=== PATIENT | female | born 2000 | race Two or more races ===

== ENCOUNTER 2020-08-30 08:55 | Outpatient (REF) | payer OTHER, SELFPAY ==
[2020-08-30 14:02] LABS: CT PCR NOT DETECTED (Not Detect.); NG PCR NOT DETECTED (Not Detect.)
[2020-08-31 13:33] LABS: BV Int Neg Control Negative (Negative); BV Int Pos Control Positive (Positive)
== END 2020-08-30 08:56 | disposition home or self-care (01) ==
LOC: HO.LAB 08:55
PROVIDERS: Visit Provider Advanced Practice Midwife
DX: Z34.00 Encounter for supervision of normal first pregnancy, unspecified trimester (principal)
CPT/HCPCS: 87480; 87491; 87510; 87591; 87660; 88142; 90686

== ENCOUNTER 2020-09-02 10:37 | Outpatient (REF) | payer OTHER, SELFPAY ==
--- NOTE | 2020-09-02 10:41 | US_ITS ---
EXAMINATION: OBSTETRICAL ULTRASOUND, FIRST TRIMESTER HISTORY: 20-year-old at 13.6 weeks of gestation NT screening COMPARISON: 07/25/2020 TECHNIQUE: Real time transabdominal imaging with color and M-mode Doppler. FINDINGS: A single, live IUP CRL of 82.5 mm c/w 14.2wks is noted. Heart Rate: 170 beats per minute. Normal yolk sac seen. NT was 1.2.mm. NB Present The embryo appears sonographically wnl for this GA. Unable to visualize due to bowel. GESTATIONAL AGE: 1. Established GA: 13.6 wks 2. GA from [facility]: 14.2 wks ESTIMATED DATE OF DELIVERY: 1. Established CRISTI: 03/04/2021 2. CRISTI from [facility]: 03/01/2021 US/US OB 1T nuc measure IMPRESSION: 1. Single active fetus 2. Size equals dates 3. NT of 1.2 mm MFM Consultation: I reviewed the ultrasound findings along with significance of NT measurement. The NT of less than 3mm is generally reassuring. However, the sensitivity for T21 detection is only 60%. I reviewed the availability of serum aneuploidy screening which includes cell-free DNA and placental protein based tests. I discussed the sensitivity, false-positive rate, and other limitations associated with each test. I also reviewed the availability of invasive diagnostic tests that are associated small but definite risk of miscarriage. We also reviewed the differences between screening tests and diagnostic tests. After our discussion, she opted for the First trimester screening that is based on cell-free DNA or non-invasive testing (NIPT). The result will be faxed to your office in approximately 7 days. A follow up at 18 weeks for survey has been scheduled. Thank you very much for this referral. Majority of this visit was spent reviewing her care and counselling her in face to face time: Time spent 20 min.
== END 2020-09-02 10:38 | disposition home or self-care (01) ==
LOC: HO.US 10:37
PROVIDERS: Visit Provider Advanced Practice Midwife
DX: Z34.00 Encounter for supervision of normal first pregnancy, unspecified trimester (principal)
CPT/HCPCS: 76813

== ENCOUNTER → 2020-09-27 08:08 | Outpatient (BNVA) | payer OTHER, SELFPAY | PROVIDERS: Visit Provider Advanced Practice Midwife | DX: Z76.89 Persons encountering health services in other specified circumstances (principal) ==

== ENCOUNTER → 2020-10-13 10:43 | Outpatient (BNVA) | payer OTHER, SELFPAY | PROVIDERS: Visit Provider Advanced Practice Midwife | DX: B37.3 Candidiasis of vulva and vagina (principal) | CPT/HCPCS: Q3014 ==

== ENCOUNTER 2020-10-14 11:17 | Outpatient (REF) | payer OTHER, SELFPAY ==
--- NOTE | 2020-10-14 11:22 | US_ITS ---
EXAMINATION: US OBSTETRICAL CLINICAL INFORMATION: 20-year-old at 19.6 weeks of gestation Suspected anomaly COMPARISON: 09/02/2020 TECHNIQUE: Real-time transabdominal ultrasound was performed using C1-5 megahertz transducer. FINDINGS: A single, active, fetus is seen in vertex presentation. The placenta is posterior without previa, and the amniotic fluid volume is wnl. MEASUREMENTS: 1. Biparietal Diameter: 4.8 cm; 20.5 wks 2. Occipital Frontal Diameter: 5.9 cm 3. Head Circumference: 17.8 cm; 20.2 wks 4. Abdominal Circumference: 14.4 cm; 19.5 wks 5. Femur Length: 3.5 cm; 21.2 wks 6. Humerus Length: 3.4 cm; 21.4 wks 7. Tibia Length: 3.0 cm; 21.0 wks 8. Ulna Length: 3.2 cm; 32.0 wks 9. Lateral ventricle: 0.72 cm 10. Cerebellum: 2.1 cm; the 1.2 wks 11. Cisterna Magna: 0.73 cm 12. Nuchal Fold: 4.03 mm 13. Heart Rate: 155 beats per minute Rt ovary: normal Lt ovary: normal Cervical length 3.9 cm on T/A. GESTATIONAL AGE: 1. Established GA: 19.6 wks 2. GA from [facility]: 20.4 wks ESTIMATED DATE OF DELIVERY: 1. Established CRISTI: 03/04/2021 2. CRISTI from [facility]: 02/27/2021 ANATOMY: The visualized anatomy includes but not limited to: 1. Cranium: Normal 2. Intracranial anatomy: cavum septum pellucidi, lateral ventricles, choroid plexus, cerebellum, posterior fossa, third and fourth ventricles. 3. face: orbits, lip/palate, profile, nasal bone 4. Heart: four-chamber view of the heart, ventricular septum, foramen ovale, pulmonary vein, left and right outflow tracts, three-vessel view, 3 vessel trachea view, aortic and ductal arches, situs.. 5. Diaphragm: Normal 6. Abdominal wall: Normal 7. Cord Insertion: Normal 8. Spine: Cervical, thoracic, lumbar, sacral. 9. Stomach: Normal size and shape 10. Right Kidney: Normal 11. Left Kidney: Normal 12. 3 vessel cord: Normal 13. Upper extremity: Open hands, fifth digit. 14. Lower extremity: Tibia, fibula, bilateral feet. 15. Bladder: Normal 16. Genitalia: Male, patient aware US/US OB /maternal detail IMPRESSION: 1. Single, living, intrauterine with appropriate biometry. 2. Normal survey DISCUSSION: I reviewed today's ultrasound findings. We discussed the limitations of ultrasound in diagnosing aneuploidy and other congenital abnormalities. I reviewed the differences between screening test and diagnostic test. Amniocentesis was discussed and declined. She was informed that the baseline incidence of congenital abnormalities is approximately 3-5%. Not all these conditions are diagnosable in utero. RECOMMENDATIONS: 1. Follow-up when necessary Thank you for allowing me to participate in her care. Visiting time 25 minutes. Majority of this visit was spent reviewing and discussing her care.
== END 2020-10-14 11:18 | disposition home or self-care (01) ==
LOC: HO.US 11:17
PROVIDERS: Visit Provider Advanced Practice Midwife
DX: O35.9XX0 Maternal care for (suspected) fetal abnormality and damage, unspecified, not applicable or unspecified (principal); Z3A.19 19 weeks gestation of pregnancy
CPT/HCPCS: 76811

== ENCOUNTER → 2020-10-25 10:19 | Outpatient (BNVA) | payer OTHER, SELFPAY | PROVIDERS: Visit Provider Advanced Practice Midwife | DX: Z34.00 Encounter for supervision of normal first pregnancy, unspecified trimester (principal) | CPT/HCPCS: 81003 ==

== ENCOUNTER → 2020-11-22 10:52 | Outpatient (BNVA) | payer OTHER, SELFPAY | PROVIDERS: PCP Pediatrics; Visit Provider Advanced Practice Midwife | DX: Z34.00 Encounter for supervision of normal first pregnancy, unspecified trimester (principal); Z3A.25 25 weeks gestation of pregnancy | CPT/HCPCS: 81003; 99212 ==

== ENCOUNTER 2022-06-10 19:53 | Emergency (ER) | payer MEDICAID, SELFPAY ==
--- NOTE | ~2022-06-10 | XR_ITS ---
EXAMINATION: XR CHEST CLINICAL INFORMATION: Chest discomfort with breathing COMPARISON: Chest x-ray 01/29/2020 TECHNIQUE: Frontal view of the chest was obtained. FINDINGS: The lungs are clear. No airspace consolidation, pleural effusion, or pneumothorax. The cardiomediastinal silhouette is within normal limits. No acute osseous injury. XR/XR chest 1V IMPRESSION: No acute pulmonary process.
[2022-06-10 19:56] VITALS: BP 122/77; PULSE 79; RESP 18; TEMP 37.3; O2SAT 98; BMI 22.0
[2022-06-10 20:18] LABS: COVID-19 Test Negative (Negative); IDNOW Serial# 16C4AD1C
== END 2022-06-10 23:36 | disposition left against medical advice (07) ==
LOC: HO.ED 22:38
PROVIDERS: Emergency Medicine; Emergency Provider Emergency Medicine
DX: R07.89 Other chest pain (principal); R50.9 Fever, unspecified; Z20.822 Contact with and (suspected) exposure to COVID-19
CPT/HCPCS: 71045; 87635; 99281; 99283

== ENCOUNTER 2022-07-18 19:30 | Emergency (ER) | payer MEDICAID, SELFPAY ==
--- NOTE | ~2022-07-18 | US_ITS ---
EXAMINATION: US OBSTETRICAL ULTRASOUND CLINICAL INFORMATION: , vaginal bleeding COMPARISON: None from this . LMP: 06/17/2022. Gestational age by maternal dates is 4 weeks 4 days. Estimated date of delivery by maternal dates is 03/24/2023. TECHNIQUE: Sonographic evaluation of the pelvis was performed transabdominally and transvaginally. FINDINGS: The uterus measures 8.3 x 4.2 x 5.6 cm. Endometrial stripe measures 0.8 cm in thickness. No intrauterine gestational sac is seen. The right ovary measures 3.5 x 1.8 x 2.2 cm and appears unremarkable. The left ovary measures 3.0 x 1.6 x 2.2 cm and appears unremarkable, only seen on transabdominal imaging. Small amount of nonspecific free fluid is noted, which may be physiologic. US/US OB pelvic and transvaginal IMPRESSION: No intrauterine is identified at this time. Correlation with beta hCG levels is recommended, as nonvisualization of a gestational sac could be due to an early stage of . Alternatively, lack of an intrauterine gestational sac may also be seen with missed or ectopic , although no adnexal mass is seen to strongly suggest ectopic . Short-term sonographic follow-up and serial beta hCG levels are recommended to assess for development of an intrauterine gestational sac.
[2022-07-18 19:50] VITALS: BP 126/72; PULSE 100; RESP 18; TEMP 37; O2SAT 100; BMI 22.0
[2022-07-18 20:17] LABS: UPreg QC Valid YES; Urine Pregnancy NEGATIVE (NEGATIVE)
[2022-07-18 20:18] LABS: Appearance Urine Clear; Color Urine Yellow; Glucose Urine UA Negative (Negative); Leukocyte Esterase Urine Negative (Negative); Nitrite Urine Negative (Negative); Specific Gravity - Urine <= 1.005 (1.005-1.025); Urine Blood Moderate (2+) (Negative); Urine Ketones Negative (Negative); Urine Protein Negative (Neg-Trace)
[2022-07-18 20:26] LABS: Bacteria Urine None Seen (None Seen); Hyaline Casts Urine 0-2 /LPF (0-2); RBC Urine 0-2 /HPF (0-2); Squamous Epithelial Cell Urine 0-2 /HPF (0-2); WBC Urine 0-5 /HPF (0-5)
[2022-07-18 23:05] LABS: MANUAL DIFF FLAG NO
[2022-07-18 23:06] LABS: Basophils Absolute Auto 0.1 X10*3/uL (0.0-0.2); Basophils Percent Auto 0.8 % (0-2); Eosinophils Absolute Auto 0.1 X10*3/uL (0.0-0.4); Eosinophils Percent Auto 1.3 % (0-4); Hematocrit 43.9 % (37.0-47.0); Hemoglobin 14.7 g/dl (12.0-16.0); Imm Gran Abs Auto 0.04 X10*3/uL (0.00-0.03); Imm Gran Pct Auto 0.4 % (0.0-0.4); Lymphocytes Absolute Auto 2.9 X10*3/uL (1.2-4.9); Lymphocytes Percent Auto 27.4 % (20-40); Mean Corpuscular HGB Conc 33.5 g/dl (31.0-35.0); Mean Corpuscular Hemoglobin 30.6 pg (27.0-33.0); Mean Corpuscular Volume 91.3 fL (80.0-98.0); Mean Platelet Volume 9.5 fL (9.4-12.3); Monocytes Percent Auto 9.2 % (2-11); Neutrophils Absolute Auto 6.4 x10*3/uL (2.0-8.3); Neutrophils Percent Auto 60.9 % (45-73); Platelet Count 335 X10*3/uL (160-400); Red Blood Count 4.81 X10*6/uL (4.20-5.50); Red Cell Distribution Width 12.3 % (11.0-16.0); White Blood Count 10.5 X10*3/uL (4.8-10.8)
[2022-07-18 23:48] LABS: Alanine Aminotransferase 11 U/L (0-31); Albumin Level 4.6 g/dL (3.5-5.0); Alkaline Phosphatase 63 U/L (39-117); Anion Gap 16 (12-20); Aspartate Amino Transferase 14 U/L (5-31); Bilirubin Total 0.4 mg/dL (0.0-1.0); Blood Urea Nitrogen 11 mg/dL (9-16); Calcium 9.7 mg/dL (8.4-10.2); Carbon Dioxide 27 mmol/L (22-29); Chloride 101 mmol/L (96-108); Creatinine Clr Calc Pharmacy 66.8; Estimated Glomerular Filt Rate 60; Glucose Random 82 mg/dL (60-115); Lipase 57 U/L (8-78); Sodium 140 mmol/L (135-145); Total Protein 8.1 g/dL (6.5-8.0)
[2022-07-18 23:55] LABS: HCG Quantitative 28 mIU/mL
--- NOTE | 2022-07-19 00:19 | ED_ITS ---
HPI - Female Genitourinary General Chief complaint: Vaginal Bleeding Stated complaint: vaginal bleeding Time Seen by Provider: 07/18/22 20:40 Source: patient Mode of arrival: ambulatory Limitations: no limitations History of Present Illness HPI Narrative: This is a 22-year-old female A0 last menstrual period 06/17/22 presenting to the emergency department with vaginal spotting since this morning. Patient rep orts that earlier today she noted that she had bright red blood in her panty liner, she reports she has only gone through one panty liner today reports when she pees and wipes blood is present, she tells me the blood is bright red, without clots. Tells me this never happened in her last . She tells me that she had a positive test at home, multiple times first + test was 2 weeks ago. And she thinks that she is around 4 weeks . Currently not receiving care, called [facility] and is waiting for apt per patient. Reports intermittent cramping to lower abdomen not present at this time. She denies nausea, vomiting, fevers, chills, diarrhea, headache, dizziness, vision changes, chest pain, shortness of breath. MD elicited complaint: other (Vaginal spotting ) Related Data Previous Rx's Medication Instructions Recorded miconazole nitrate 2 % vaginal 1 appful vaginal BEDTIME 7 days 10/13/20 cream (Monistat 7) #45 grams vitamin with calcium 1 tab PO DAILY #30 tabs 10/25/20 no.72-iron 27 mg-folic acid 1 mg tablet Allergies Allergy/AdvReac Type Severity Reaction Status Date / Time milk Allergy Gastrointestinal Verified 07/18/22 19:54 Upset Review of Systems Review of Systems: Constitutional : No Weight loss, No Fever, No Chills, No Fatigue, No Malaise ENT/Mouth : No sore throat, No Rhinorrhea Eyes: No Eye Pain, No Swelling, No Redness Cardiovascular : No Chest Pain, No SOB, No Dyspnea on Exertion, No Orthopnea, No Edema, No Palpitations Respiratory : No Cough, No Sputum, No Wheezing Gastrointestinal : No Nausea, No Vomiting, No Diarrhea, No Constipation, + abdominal cramping, No abdominal pain, No Hematochezia, No Melena Genitourinary : No Dysuria, No Urinary Frequency, No Hematuria, + Vaginal spotting Musculoskeletal : No joint pain, No Myalgias, No Joint Swelling Skin : No Skin Lesions, No rash Neuro : No Weakness, No Numbness, No Dizziness, No Headache Psych : No Anxiety/Panic, No Depression All other systems reviewed and are negative Yes all other systems are reviewed and are negative [facility] Past Medical History Attestation statement: The following information was validated with the patient. Source: old records reviewed and nursing notes reviewed Medical History Depression Surgical History No history of previous surgery Family History Family History Maternal Grandmother Diabetes mellitus Father Diabetes mellitus HTN (hypertension) Paternal Grandmother Breast cancer Social History Social History Alcohol intake: never Advance Directives: No Advance Directives Information Provided: Yes Gender identity: Female Physical Exam Vital Signs: Vital Signs: Last Vital Signs Temp 98.6 F 07/18/22 19:50 Pulse 54 07/19/22 02:00 Resp 18 07/18/22 19:50 BP 107/46 L 07/19/22 02:00 Pulse Ox 98 07/19/22 02:00 O2 Del Method 07/19/22 02:00 BMI result Body Mass Index 22.0 Vital signs stable, patient hemodynamically stable Appearance: Alert.? Oriented X3.? No acute distress.? Head: Normocephalic, atraumatic, no step-offs or deformities Eyes: Pupils equal, round and reactive to light.? Neck: Normal inspection.? Neck supple.? CVS: Normal heart rate and rhythm.? Pulses normal.? Respiratory: No respiratory distress.? Breath sounds normal.? Abdomen: Soft and nontender.?Normal BS . Atraumatic abdomen Skin: Skin warm and dry.? Normal skin color.? Normal skin turgor.? Extremities: No lower extremity edema.? No calf ttp. 5/5 strength to bilateral upper and lower extremities Sensative exam: deffered Back: No midline tenderness, no C-spine tenderness, full range of motion, no CVA tenderness bilaterally Neuro: Oriented X 3.? No motor deficit.? No sensory deficit. CN 2-12 intact Course Reevaluation(s) Reevaluation #1: Patient's CBC with no acute findings x2, chemistry with no acute electrolyte abnormalities requiring intervention, beta hCG of 28, lipase within normal limits, UA without infection however there is blood noted in the urine. At this time pelvic ultrasound pending. Time: 01:37 Reevaluation #2: Pelvic ultrasound was obtained which showed no intrauterine , unable to visualize a gestational sac, could be due to early stages of , or missed . Ultrasound report notes that lack of gestational sac could als o represent an ectopic however no adnexal masses seen therefore very low suspicion for ectopic . Patient's physical examination is benign there is no abdominal tenderness to palpation. Patient had no pain with palpation of pelvic ultrasound internally. Patient continues to refuse pelvic exam she tells me she will call OBGYN tomorrow morning. She tells me that she knows she is not going to have pain with pelvic exam as she did not have any discomfort with the ultrasound. Patient also reports that her pain is completely gone, she tells me she just went to the bathroom and did not know any vaginal bleeding. Patient has been instructed to start taking vitamins, advised her to get a repeat HCG in 48-72 hours, advised her to call OBGYN tomorrow to schedule an appointment for as soon as possible. Educated her on worrisome signs and symptoms and advised her to return if any of these arise. Patient and patient's partner who is at the bedside verbalized understanding. This case was also discussed with my attending, who agrees with my diagnosis and treatment plan. At this time patient will be discharged home advised to return with new or worsening symptoms. Comfortable discharge Time: 02:36 MDM - Female Genitourinary MDM Narrative Medical decision making narrative: 0022 22-year-old female A0 presents to the emergency department with vaginal spotting since this morning. Not currently on vitamins or receiving care Physical examination benign. Patient refusing/deferred a sensitive exam as she states that will not make a difference in the outcome of today's visit. Concerns for threatened . History and physical examination with low suspicion for ectopic no abdominal pain on exam. Plan at this time is to obtain basic labs, urine, beta hCG, US pelvic and trans vaginal Medical Records Attestation: I reviewed the patient's medical records. Lab Data Attestation: I reviewed the patient's lab results. Result diagrams: 07/19/22 00:22 07/18/22 23:00 Labs: Lab Results 07/18/22 07/18/22 07/18/22 Range/Units 20:02 20:02 23:00 WBC 10.5 (4.8-10.8) X10*3/uL RBC 4.81 (4.20-5.50) X10*6/uL Hgb 14.7 (12.0-16.0) g/dl Hct 43.9 (37.0-47.0) % MCV 91.3 (80.0-98.0) fL MCH 30.6 (27.0-33.0) pg MCHC 33.5 (31.0-35.0) g/dl RDW 12.3 (11.0-16.0) % Plt Count 335 (160-400) X10*3/uL MPV 9.5 (9.4-12.3) fL Immature Gran % (Auto) 0.4 (0.0-0.4) % Neut % (Auto) 60.9 (45-73) % Lymph % (Auto) 27.4 (20-40) % [place] % (Auto) 9.2 (2-11) % Eos % (Auto) 1.3 (0-4) % Baso % (Auto) 0.8 (0-2) % Lymph # (Auto) 2.9 (1.2-4.9) X10*3/uL [place] # (Auto) 1.0 (0.1-1.2) X10*3/uL Eos # (Auto) 0.1 (0.0-0.4) X10*3/uL Baso # (Auto) 0.1 (0.0-0.2) X10*3/uL Abs Immat Gran (auto) 0.04 H (0.00-0.03) X10*3/uL Absolute Neuts (auto) 6.4 (2.0-8.3) x10*3/uL Absolute Nucleated RBC 0.000 (0.0-0.012) X10*3/uL Nucleated RBC % (auto) 0.0 (0.0-0.2) /100WBC Sodium (135-145) mmol/L Potassium (3.3-5.1) mmol/L Chloride (96-108) mmol/L Carbon Dioxide (22-29) mmol/L Anion Gap (12-20) BUN (9-16) mg/dL Creatinine (0.5-1.4) mg/dL Estim Creat Clear Calc Estimated GFR Random Glucose (60-115) mg/dL Calcium (8.4-10.2) mg/dL Total Bilirubin (0.0-1.0) mg/dL AST (5-31) U/L ALT (0-31) U/L Alkaline Phosphatase (39-117) U/L Total Protein (6.5-8.0) g/dL Albumin (3.5-5.0) g/dL Lipase (8-78) U/L Beta HCG, Quant mIU/mL Urine Color Yellow Urine Appearance Clear Urine pH 6.0 (5.0-9.0) Ur Specific [place] <= 1.005 (1.005-1.025) Urine Protein Negative (Neg-Trace) mg/dL Urine Glucose (UA) Negative (Negative) mg/dL Urine Ketones Negative (Negative) mg/dL Urine Blood Moderate (2+) H (Negative) Urine Nitrite Negative (Negative) Ur Leukocyte Esterase Negative (Negative) Urine RBC 0-2 (0-2) /HPF Urine WBC 0-5 (0-5) /HPF Ur Squamous Epith Cells 0-2 (0-2) /HPF Urine Bacteria None Seen (None Seen) Hyaline Casts 0-2 (0-2) /LPF Urine Test NEGATIVE (NEGATIVE) 07/18/22 07/18/22 07/19/22 Range/Units 23:00 23:00 00:22 WBC 10.5 (4.8-10.8) X10*3/uL RBC 4.52 (4.20-5.50) X10*6/uL Hgb 13.8 (12.0-16.0) g/dl Hct 41.3 (37.0-47.0) % MCV 91.4 (80.0-98.0) fL MCH 30.5 (27.0-33.0) pg MCHC 33.4 (31.0-35.0) g/dl RDW 12.4 (11.0-16.0) % Plt Count 322 (160-400) X10*3/uL MPV 9.6 (9.4-12.3) fL Immature Gran % (Auto) 0.3 (0.0-0.4) % Neut % (Auto) 57.1 (45-73) % Lymph % (Auto) 30.4 (20-40) % [place] % (Auto) 9.4 (2-11) % Eos % (Auto) 1.8 (0-4) % Baso % (Auto) 1.0 (0-2) % Lymph # (Auto) 3.2 (1.2-4.9) X10*3/uL [place] # (Auto) 1.0 (0.1-1.2) X10*3/uL Eos # (Auto) 0.2 (0.0-0.4) X10*3/uL Baso # (Auto) 0.1 (0.0-0.2) X10*3/uL Abs Immat Gran (auto) 0.03 (0.00-0.03) X10*3/uL Absolute Neuts (auto) 6.0 (2.0-8.3) x10*3/uL Absolute Nucleated RBC 0.000 (0.0-0.012) X10*3/uL Nucleated RBC % (auto) 0.0 (0.0-0.2) /100WBC Sodium 140 (135-145) mmol/L Potassium 4.0 (3.3-5.1) mmol/L Chloride 101 (96-108) mmol/L Carbon Dioxide 27 (22-29) mmol/L Anion Gap 16 (12-20) BUN 11 (9-16) mg/dL Creatinine 1.13 (0.5-1.4) mg/dL Estim Creat Clear Calc 66.8 Estimated GFR 60 Random Glucose 82 (60-115) mg/dL Calcium 9.7 (8.4-10.2) mg/dL Total Bilirubin 0.4 (0.0-1.0) mg/dL AST 14 (5-31) U/L ALT 11 (0-31) U/L Alkaline Phosphatase 63 (39-117) U/L Total Protein 8.1 H (6.5-8.0) g/dL Albumin 4.6 (3.5-5.0) g/dL Lipase 57 (8-78) U/L Beta HCG, Quant 28 mIU/mL Urine Color Urine Appearance Urine pH (5.0-9.0) Ur Specific [place] (1.005-1.025) Urine Protein (Neg-Trace) mg/dL Urine Glucose (UA) (Negative) mg/dL Urine Ketones (Negative) mg/dL Urine Blood (Negative) Urine Nitrite (Negative) Ur Leukocyte Esterase (Negative) Urine RBC (0-2) /HPF Urine WBC (0-5) /HPF Ur Squamous Epith Cells (0-2) /HPF Urine Bacteria (None Seen) Hyaline Casts (0-2) /LPF Urine Test (NEGATIVE) Critical Care Time Critical Care Time Critical Care Time: No Discharge Plan Discharge Clinical Impression: Threatened , Vaginal spotting Patient Disposition: Home, Self-Care Instructions: Threatened Miscarriage (ED) Additional Instructions: Take your medications as prescribed. If you were prescribed antibiotics today, it is important that you take your medication to their entirety, do not skip any doses, do not finish them early. Follow-up with your primary care provider this week. Follow-up with OBGYN as soon as possible within the next air to Return to the emergency department with new or worsening symptoms. Such as fevers, chills, chest pain, shortness of breath, nausea, vomiting, dizziness, headache, vision changes, lethargy If you are bleeding through more than 1 pad per hour you need to come in for immediate attention. In case of emergency call 911 Please start taking [id number] vitamins. You should have a repeat hCG done within 48-72 hours this can be done through PCP, OBGYN or emergency department. And you will likely require a follow-up ultrasound. US/US OB pelvic and transvaginal IMPRESSION: No intrauterine is identified at this time. Correlation with beta hCG levels is recommended, as nonvisualization of a gestational sac could be due to an early stage of . Alternatively, lack of an intrauterine gestational sac may also be seen with missed or ectopic , although no adnexal mass is seen to strongly suggest ectopic . Short-term sonographic follow-up and serial beta hCG levels are recommended to assess for development of an intrauterine gestational sac. Prescriptions: No Action PNV,calcium [id number] acid 27 mg iron- 1 mg tablet 1 tab PO DAILY Qty: 30 8RF miconazole nitrate [Monistat 7] 2 % cream 1 appful vaginal BEDTIME 7 Days Qty: 45 0RF Referrals: Physician,None [Primary Care Provider] - 2 days Thai Lieberman MD [Physician] - 1 day Stand Alone Forms: Work/School Release
[2022-07-19 00:28] LABS: MANUAL DIFF FLAG NO
[2022-07-19 00:37] LABS: Basophils Absolute Auto 0.1 X10*3/uL (0.0-0.2); Eosinophils Absolute Auto 0.2 X10*3/uL (0.0-0.4); Eosinophils Percent Auto 1.8 % (0-4); Hematocrit 41.3 % (37.0-47.0); Hemoglobin 13.8 g/dl (12.0-16.0); Imm Gran Abs Auto 0.03 X10*3/uL (0.00-0.03); Imm Gran Pct Auto 0.3 % (0.0-0.4); Lymphocytes Absolute Auto 3.2 X10*3/uL (1.2-4.9); Lymphocytes Percent Auto 30.4 % (20-40); Mean Corpuscular HGB Conc 33.4 g/dl (31.0-35.0); Mean Corpuscular Hemoglobin 30.5 pg (27.0-33.0); Mean Corpuscular Volume 91.4 fL (80.0-98.0); Mean Platelet Volume 9.6 fL (9.4-12.3); Monocytes Percent Auto 9.4 % (2-11); Neutrophils Percent Auto 57.1 % (45-73); Platelet Count 322 X10*3/uL (160-400); Red Blood Count 4.52 X10*6/uL (4.20-5.50); Red Cell Distribution Width 12.4 % (11.0-16.0); White Blood Count 10.5 X10*3/uL (4.8-10.8)
[2022-07-19] MEDS: Acetaminophen 325 MG TABLET 650 MG PO (01:51)
[2022-07-19 02:00] VITALS: BP 107/46; PULSE 54; O2SAT 98
== END 2022-07-19 02:47 | disposition home or self-care (01) ==
PROVIDERS: Physician Assistant; Emergency Provider Internal Medicine
DX: O20.0 Threatened abortion (principal); N93.8 Other specified abnormal uterine and vaginal bleeding; Z79.899 Other long term (current) drug therapy
CPT/HCPCS: 36415; 76801; 76817; 80053; 81001; 81025; 83690; 84702; 85025; 99283; 99284

== ENCOUNTER → 2022-07-23 11:04 | Outpatient (BNVA) | payer MEDICAID, SELFPAY | PROVIDERS: Visit Provider Advanced Practice Midwife | DX: O03.9 Complete or unspecified spontaneous abortion without complication (principal) | CPT/HCPCS: 99212 ==

== ENCOUNTER 2022-10-15 16:14 | Outpatient (REF) | payer MEDICAID, SELFPAY ==
[2022-10-16 14:19] LABS: CT PCR NOT DETECTED (Not Detect.); NG PCR NOT DETECTED (Not Detect.)
[2022-10-17 11:15] LABS: BV Int Neg Control Negative (Negative); BV Int Pos Control Positive (Positive)
== END 2022-10-15 16:15 | disposition home or self-care (01) ==
LOC: HO.LNP 16:14
PROVIDERS: Visit Provider Advanced Practice Midwife
DX: Z01.419 Encounter for gynecological examination (general) (routine) without abnormal findings (principal); Z11.3 Encounter for screening for infections with a predominantly sexual mode of transmission; R10.2 Pelvic and perineal pain; N89.8 Other specified noninflammatory disorders of vagina
CPT/HCPCS: 81025; 87480; 87491; 87510; 87591; 87660

== ENCOUNTER 2022-10-29 12:10 | Outpatient (REF) | payer MEDICAID, SELFPAY ==
[2022-10-29 12:57] LABS: HCG Quantitative 142 mIU/mL
== END 2022-10-29 12:11 | disposition home or self-care (01) ==
LOC: HO.LAB 12:10
PROVIDERS: Visit Provider Advanced Practice Midwife
DX: Z34.90 Encounter for supervision of normal pregnancy, unspecified, unspecified trimester (principal)
CPT/HCPCS: 36415; 84702

== ENCOUNTER 2022-10-31 12:03 | Outpatient (REF) | payer MEDICAID, SELFPAY ==
[2022-10-31 13:49] LABS: HCG Quantitative 368 mIU/mL
== END 2022-10-31 12:04 | disposition home or self-care (01) ==
LOC: HO.LAB 12:03
PROVIDERS: Visit Provider Advanced Practice Midwife
DX: Z34.90 Encounter for supervision of normal pregnancy, unspecified, unspecified trimester (principal)
CPT/HCPCS: 36415; 84702

== ENCOUNTER → 2022-11-01 13:09 | Outpatient (BNVA) | payer OTHER, SELFPAY | PROVIDERS: Visit Provider Advanced Practice Midwife | DX: Z13.89 Encounter for screening for other disorder (principal) ==